=== PATIENT | female | born 1985 | race Caucasian/White ===

== ENCOUNTER → 2016-10-15 10:48 | Day surgery (SDC) | payer BC ==
[~2016-10-15 10:48] MED LIST: Atracurium* 10 MG/ML 10 ML VIAL ONE; Buffered Lidocaine 1% SYR 3ML* 3 ML/SYR SYRINGE INTRADERM ONE; Bupivacaine 0.25% SDV* 30 ML ONE; Dexamethasone IV* 4 MG/ML 1 ML (4 MG) IV SLOW PU ONE; Dexamethasone IV* 4 MG/ML 1 ML (4 MG) ONE; DiMENhydriNATE IV* 50 MG/ML VIAL IV PUSH PRN; Edrophonium Chloride* 10 MG/ML 15 ML VIAL ONE; Famotidine IV* 10 MG/ML 2 ML (20 mg) IV ONE; Famotidine IV* 10 MG/ML 2 ML (20 mg) ONE; Glycopyrrolate IV* 0.2 MG/ML 1 ML VIAL ONE; Ketorolac INJ* 30 MG/ML 1 ML VIAL ONE; Lidocaine 2% PF * 5 ML VIAL ONE; Midazolam* 1 MG/ML 5 ML VIAL (5 MG) ONE; Ondansetron INJ* 2 MG/ML VIAL IV PRN; Ondansetron INJ* 2 MG/ML VIAL ONE; Propofol* 10 MG/ML 20 ML BTL IV PUSH ONE; Scopolamine 1.5 mg* PATCH TRANSDERM PRN; Scopolamine PATCH Remove* 1 NOTE MISC PATCH OFF ONE; fentaNYL* 50 MCG/ML 2 ML VIAL (100 MCG VIAL) ONE; fentaNYL* 50 MCG/ML 5 ML VIAL (250 MCG VIAL) ONE; oxyCODONE/Acetamin 5/325 MG* TAB ONE
[2016-10-15 11:37] LABS: UR Preg Internal Control QC Line Present
[2016-10-15 11:38] LABS: Manual Entry Verification HAN0055
[2016-10-15 13:31] LABS: Hematocrit 45 % (35-47); Hemoglobin 15.1 g/dl (12.0-16.0); Mean Corpuscular HGB Conc 34 g/dl (31-36); Mean Corpuscular Hemoglobin 32 pg (27-31); Mean Corpuscular Volume 94 fL (80-97); Mean Platelet Volume 10 um3 (7.4-10.4); Red Blood Count 4.74 10^6/ul (4.0-5.4); Red Cell Distribution Width 13 % (10.5-15); White Blood Count 6.6 10^3/ul (3.5-10.8)
[2016-10-15] MEDS: fentaNYL* 50 MCG/ML 2 ML VIAL (100 MCG VIAL) IV PRN ×2 (14:53→15:22)
[2016-10-15] MEDS: oxyCODONE/Acetamin 5/325 MG* TAB PO PRN ×2 (14:55→15:00)
[2016-10-15 15:33] VITALS: BP 118/65
--- NOTE | 2016-10-16 05:27 | OP ---
DATE OF OPERATION: 10/15/16 [facility] DATE OF : 83 SURGEON: Millicent Nicholas MD ANESTHESIOLOGIST: Jonathan Schafer MD ANESTHESIA: General endotracheal. PRE-OP DIAGNOSES: Epigastric pain, dysmenorrhea, and dyspareunia. POST-OP DIAGNOSES: Epigastric pain, dysmenorrhea, and dyspareunia. OPERATIVE PROCEDURE: Diagnostic laparoscopy. ESTIMATED BLOOD LOSS: Minimal. URINE OUTPUT: 200 cc. IV FLUIDS: 1400 cc lactated Ringer's. MATERIAL TO LAB: None. INDICATIONS: This patient is a 31-year-old 2, para 2 about two and half years since her last section. For the last 2 years, the patient reports that she has been having significant epigastric pain with every period and also has a similar pain during intercourse. The patient already had a GI evaluation, which was noncontributory. Ultrasound was also negative. We discussed options and the patient tried oral contraceptives, but she did not have improvement with them. She then desired to proceed with a diagnostic laparoscopy. She was extensively counseled and consent was signed. FINDINGS: Normal-appearing uterus, fallopian tubes, and ovaries. Uterus was retroverted. No visible evidence of significant adhesions anywhere. No endometriosis was seen. Right and left upper quadrants were also visualized and also appeared normal. COMPLICATIONS: None. DESCRIPTION OF PROCEDURE: The risks, benefits, and alternatives were described to the patient and informed consent was obtained. The patient was taken to the operating room with IV running, where general anesthesia was induced and found to be adequate. The patient was prepped and draped in the normal sterile fashion in the low lithotomy position in [facility]. A time-out was performed. The bladder was emptied. A bivalve speculum was placed in the vagina and a Hulka tenaculum was placed on the posterior cervix as the uterus was retroverted. The speculum was then removed and attention was turned to the abdomen. 0.25% Marcaine was injected into the umbilicus. A 5-mm incision was made with the scalpel. Penetrating towel clamps were used to elevate the skin on either side of the umbilicus. A 5-mm bladeless trocar was then inserted into the abdominal cavity under direct visualization with the laparoscope. The abdomen was then insufflated with carbon dioxide gas to a maximum pressure of 15 mmHg. The opening pressure was 3 mmHg. The area below the trocar insertion site was inspected and there was no visible evidence of trauma or bleeding. The patient was placed in the Trendelenburg position and using the Hulka for uterine manipulation, there was good visualization of the entire pelvis including both adnexa. The epigastrium and both the right and left lower quadrant both visualized and there were no abnormalities seen. Considering this , the procedure was discontinued. The patient was flattened and the gas was allowed to escape from the abdomen completely. The trocar was then removed. The skin was reapproximated using DermaFlex skin adhesive. The Hulka tenaculum was then removed and the patient was returned to the supine position. The patient tolerated the procedure well. Sponge, lap, and needle counts were correct x2. [id number] #: [id number] MTDD
== END | disposition home or self-care (01) ==
LOC: OR 10:48
PROVIDERS: ATTEND Obstetrics & Gynecology
PROC: 0WJG4ZZ Inspection of Peritoneal Cavity, Percutaneous Endoscopic Approach (ICD-10-PCS; principal; 2016-10-15 11:30)
DX: N94.6 Dysmenorrhea, unspecified (principal); N94.10 Unspecified dyspareunia; R10.13 Epigastric pain
CPT/HCPCS: 36415; 81025; 85027; 86850; 86900; 86901; A9270-GY; J1100; J1885; J2250; J2405; J2704; J3010

== ENCOUNTER 2019-01-22 18:48 | Emergency (ER) | payer BC ==
[2019-01-22] MEDS ORDERED: Ketorolac INJ* 30 MG/ML 1 ML VIAL IM ONE (20:44)
--- NOTE | 2019-01-22 20:44 | UC ---
Complaint Female HPI - HPI Summary HPI Summary: 33 yo female with onset this AM of dysuria/urgency and frequency symptoms dramatically worsened about noon gross hematuria left flank pain unable to get comfortable no fever but feels chilled no vag d/c or itch - History Of Current Complaint Chief Complaint: UCGU Stated Complaint: URINARY,LOW BACK PAIN Time Seen by Provider: 01/22/19 20:38 Hx Obtained From: Patient Hx Last Menstrual Period: 01/07/19 Onset/Duration: Sudden Onset, Lasting Hours Timing: Constant Severity Initially: Mild Severity Currently: Moderate Pain Intensity: 7 - worse with urination Pain Scale Used: 0-10 Numeric Character: Burning Aggravating Factor(s): Urination Alleviating Factor(s): Nothing Associated Signs And Symptoms: Positive: Back Pain - left flank, Nausea. Negative: Fever, Vaginal Bleeding/Discharge, Vaginal Discharge, Vomiting(# Of Episodes =), Genital Swelling, Genital Blisters, Retained Foregin Body (Specify) - Allergies/Home Medications Allergies/Adverse Reactions: Allergies Allergy/AdvReac Type Severity Reaction Status Date / Time amoxicillin Allergy Hives Verified 01/22/19 20:05 penicillin V Allergy Hives Verified 01/22/19 20:05 Home Medications: Home Medications Amlodipine Bes/Olmesartan Med [Mirian 5-20 mg] 2 tab PO ONCE PRN 01/22/19 [ History Confirmed 01/22/19] PMH/Surg Hx/FS Hx/Imm Hx Previously Healthy: Yes - Surgical History Surgical History: Yes Surgery Procedure, Year, and Place: [id number], 2013. hernia , 2013, - Family History Known Family History: Positive: Cardiac Disease - father - [place], Other - mom - ovarian cysts - Social History Alcohol Use: Occasionally Alcohol Amount: 1 per month Substance Use Type: None Smoking Status (MU): Never Smoked Tobacco Have You Smoked in the Last Year: No - Immunization History Most Recent Influenza Vaccination: 05/06 Most Recent Tetanus Shot: 10/24/13 Most Recent Pneumonia Vaccination: none Review of Systems All Other Systems Reviewed And Are Negative: Yes Constitutional: Positive: Chills Skin: Positive: Negative Eyes: Positive: Negative ENT: Positive: Negative Respiratory: Positive: Negative Cardiovascular: Positive: Negative Gastrointestinal: Positive: Abdominal Pain - left flank, Nausea Genitourinary: Positive: Dysuria, Hematuria, Frequency, Urgency. Negative: Vaginal/Penile Burning, Vaginal/Penile Itching, Vaginal/Penile Discharge, Vaginal/Penile Pain, Vaginal/Penile Tenderness, Ulceration/Lesion, Abnormal Bleeding Motor: Positive: Negative Neurovascular: Positive: Negative Musculoskeletal: Positive: Negative Neurological: Positive: Negative Psychological: Positive: Negative Physical Exam Triage Information Reviewed: Yes Appearance: Well-Appearing, No Pain Distress, Well-Nourished Vital Signs: Initial Vital Signs Temp 99.2 F 01/22/19 20:08 Pulse 80 01/22/19 20:08 Resp 18 01/22/19 20:08 BP 124/68 01/22/19 20:08 Pulse Ox 100 01/22/19 20:08 Vital Signs Reviewed: Yes Eyes: Positive: Conjunctiva Clear ENT: Positive: Hearing grossly normal. Negative: Pharyngeal erythema, Nasal congestion, Nasal drainage, Trismus, Muffled voice, Hoarse voice Dental: Negative: Abscess @ Neck: Positive: Supple Respiratory: Positive: Lungs clear, Normal breath sounds, No respiratory distress, No accessory muscle use Cardiovascular: Positive: RRR, No Murmur Abdomen Description: Positive: Soft, CVA Tenderness (L). Negative: Nontender - LUQ tenderness, Distended, Guarding, Hernia @, Hepatomegaly, McBurney's Point Tenderness, Peritoneal Signs, Pulsatile Mass, Splenomegaly Bowel Sounds: Positive: Present Neurological: Positive: Alert Psychological Exam: Normal Skin Exam: Normal Diagnostics - Laboratory Lab Results: unable to do UA due to AZO - Radiology No standard instances Radiology Interpretation Completed By: Radiologist Summary of Radiographic Findings: CT no stone Complaint Female Dx - Differential Dx/Diagnosis Provider Diagnosis: UTI (urinary tract infection) Discharge - Sign-Out/Discharge Documenting (check all that apply): Patient Departure All imaging exams completed and their final reports reviewed: No Studies - Discharge Plan Condition: Stable Disposition: HOME Patient Education Materials: Urinary Tract Infection in Women (ED) Referrals: Millicent Nicholas MD [Primary Care Provider] - If Needed Additional Instructions: recheck if not better in 48 hours to ER for new or worsening symptoms CT- no stone you may continue AZO - Billing Disposition and Condition Condition: STABLE Disposition: Home
[2019-01-22] MEDS ORDERED: Cephalexin CAP* 500 MG PO ONE ×2 (21:28)
[2019-01-22 22:45] VITALS: BP 113/72
== END 2019-01-22 23:15 | disposition home or self-care (01) ==
LOC: UCCORT 18:48
DX: N39.0 Urinary tract infection, site not specified (principal); B96.20 Unspecified Escherichia coli [E. coli] as the cause of diseases classified elsewhere; Z88.0 Allergy status to penicillin
CPT/HCPCS: 74176; 87077; 87086; 87186; 96372; 99213; A9270-GY; G0463; J1885